=== PATIENT | female | born 1940 | race Caucasian/White ===

== ENCOUNTER 2018-04-21 16:20 | Outpatient (CLI) | payer MEDICARE, MEDICAID | END 2018-04-21 23:59 | disposition home or self-care (01) | LOC: RAD 16:20 | PROVIDERS: ATTEND Family Medicine | DX: M79.89 Other specified soft tissue disorders (principal); M25.561 Pain in right knee | CPT/HCPCS: 73564-TC ==

== ENCOUNTER 2019-01-19 11:58 | Outpatient (CLI) | payer MEDICARE, MEDICAID | END 2019-01-19 23:59 | disposition home or self-care (01) | LOC: RAD 11:58 | PROVIDERS: ATTEND Family Medicine | DX: I70.0 Atherosclerosis of aorta (principal); M25.561 Pain in right knee; M25.562 Pain in left knee; M79.604 Pain in right leg; M79.605 Pain in left leg; Z98.890 Other specified postprocedural states; Z98.82 Breast implant status | CPT/HCPCS: 71100-TC; 73562; 73590-TC ==

== ENCOUNTER 2019-01-26 15:10 | Outpatient (CLI) | payer MEDICARE, MEDICAID | END 2019-01-26 23:59 | disposition home or self-care (01) | LOC: WOU 15:10 | PROVIDERS: ATTEND Specialist | DX: S81.011A Laceration without foreign body, right knee, initial encounter (principal); S81.811A Laceration without foreign body, right lower leg, initial encounter; W18.30XA Fall on same level, unspecified, initial encounter; Y92.89 Other specified places as the place of occurrence of the external cause; Z87.891 Personal history of nicotine dependence; I73.9 Peripheral vascular disease, unspecified; Z98.62 Peripheral vascular angioplasty status; Z79.02 Long term (current) use of antithrombotics/antiplatelets; E78.5 Hyperlipidemia, unspecified | CPT/HCPCS: 87070; 87075; 87077; 87186; A6209; A6402; G0463 ==

== ENCOUNTER 2019-01-27 10:00 | Outpatient (CLI) | payer MEDICARE, MEDICAID | END 2019-01-27 23:59 | disposition home or self-care (01) | LOC: WOU 10:00 | PROVIDERS: ATTEND Specialist | DX: S81.811D Laceration without foreign body, right lower leg, subsequent encounter (principal); X58.XXXD Exposure to other specified factors, subsequent encounter; I77.1 Stricture of artery; Z98.890 Other specified postprocedural states ==

== ENCOUNTER 2019-02-02 11:20 | Outpatient (CLI) | payer MEDICARE, MEDICAID | END 2019-02-02 23:59 | disposition home or self-care (01) | LOC: WOU 11:20 | PROVIDERS: ATTEND Specialist | DX: S81.011D Laceration without foreign body, right knee, subsequent encounter (principal); S81.811A Laceration without foreign body, right lower leg, initial encounter; X58.XXXA Exposure to other specified factors, initial encounter; Y92.89 Other specified places as the place of occurrence of the external cause; X58.XXXD Exposure to other specified factors, subsequent encounter; Z87.891 Personal history of nicotine dependence; Z88.0 Allergy status to penicillin; Z79.02 Long term (current) use of antithrombotics/antiplatelets; E78.5 Hyperlipidemia, unspecified; I70.209 Unspecified atherosclerosis of native arteries of extremities, unspecified extremity; Z98.62 Peripheral vascular angioplasty status | CPT/HCPCS: 17250; A6209; A6402 ==

== ENCOUNTER 2019-05-04 18:52 | Inpatient (IN) | payer MEDICARE, MEDICAID ==
[~2019-05-04] VITALS: Ht 162.6 cm; Wt 48.8 kg
--- NOTE | 2019-05-04 19:15 | NUR ---
PT BIBSELF C/O ABD PAIN, WAS REFERRED FROM DR. WHELAN FOR SCHEDULED CHOLECYSTECTOMY TOMORROW MORNING. PT AXO4. RESPIRATIONS EVEN AND UNLABORED. PT PUT ON THE NANOFABRICATION SPECIALIST AND PULSE OX. PENDING EVAL FROM . FAMILY AT BEDSIDE.
--- NOTE | 2019-05-04 19:25 | NUR ---
LABS DRAWN FROM 20G LOCATED WITHIN [facility], SENT TO LAB.
[2019-05-04] MEDS ORDERED: IV NS 0.9% 1,000 ML BAG IV ONE (19:30)
[2019-05-04] MEDS ORDERED: ONDANSETRON HCL/PF 4 MG/2 ML VIAL IVP ONE (19:30)
[2019-05-04] MEDS ORDERED: MORPHINE SULFATE INJ 2 MG/ML DISP.SYRIN IV ONE (19:30)
[2019-05-04] MEDS ORDERED: ONDANSETRON HCL/PF 4 MG/2 ML VIAL ONE (19:35)
[2019-05-04] MEDS ORDERED: MORPHINE SULFATE INJ 4 MG/ML DISP.SYRIN ONE (19:35)
--- NOTE | 2019-05-04 19:40 | NUR ---
Chapo zee in [facility] - 05/04/19 at 2017 by KIRSTEN DEB AT BEDSIDE
[2019-05-04 19:43] LABS: BASOPHILS % (AUTO) 0.6 % (0.0-2.0); EOSINOPHILS % (AUTO) 5.5 % (0.0-6.0); HEMATOCRIT 37 % (33-45); HEMOGLOBIN 12.7 g/dL (11.5-14.8); LYMPHOCYTES # (AUTO) 2.1 /CMM (0.8-4.8); LYMPHOCYTES % (AUTO) 28.4 % (20.0-44.0); MEAN CORPUSCULAR HGB CONC 34 g/dl (31.0-36.0); MEAN CORPUSCULAR VOLUME 94 fL (82-100); MONOCYTES # (AUTO) 0.4 /CMM (0.1-1.30); MONOCYTES % (AUTO) 4.8 % (2.0-12.0); NEUTROPHILS # (AUTO) 4.4 /CMM (1.8-8.9); NEUTROPHILS % (AUTO) 60.7 % (43.0-81.0); PLATELET COUNT (AUTO) 252 /CMM (150-450); RED BLOOD CELL COUNT(AUTO) 3.97 MIL/uL (4.0-5.2); WHITE BLOOD COUNT (AUTO) 7.3 K/uL (4.3-11.0)
[2019-05-04 19:52] LABS: CALCIUM, SERUM 9.3 mg/dL (8.5-10.1); CARBON DIOXIDE 28 mmol/L (21-32); CHLORIDE 104 mmol/L (98-107); CREATININE 0.9 mg/dL (0.6-1.3); GLUCOSE 95 mg/dL (74-106); POTASSIUM 4.4 mmol/L (3.5-5.1); SODIUM SERUM 139 mmol/L (136-145); UREA NITROGEN, BLOOD 18 mg/dL (7-18)
--- NOTE | 2019-05-04 19:55 | NUR ---
US AT BEDSIDE.
[2019-05-04 20:06] LABS: ALANINE AMINOTRANSFERASE 20 U/L (12-78); ALBUMIN 4.1 g/dL (3.4-5.0); ALKALINE PHOSPHATASE 110 U/L (46-116); ASPARTATE AMINOTRANSFERASE 15 U/L (15-37); BILIRUBIN,DIRECT 0.2 mg/dL (0.0-0.2); BILIRUBIN,TOTAL 1.9 mg/dL (0.2-1.0); LIPASE 89 U/L (73-393); TOTAL PROTEIN, SERUM 7.2 g/dL (6.4-8.2)
--- NOTE | 2019-05-04 20:17 | NUR ---
XRAY AT BEDSIDE.
--- NOTE | 2019-05-04 20:31 | NUR ---
PT RESTING IN BED, NAD NOTED. WILL CONTINUE TO MONITOR. FAMILY AT BEDSIDE.
--- NOTE | 2019-05-04 20:32 | NUR ---
CALLED [facility], DR RAHMAN WAS PAGED
--- NOTE | 2019-05-04 20:54 | NUR ---
Chapo zee in [facility] - 05/04/19 at 2054 by FER REPORT GIVEN TO WILMA MONAHAN FOR ROMINA.
--- NOTE | 2019-05-04 20:58 | NUR ---
REPORT GIVEN TO WILMA MONAHAN FOR ROMINA.
[2019-05-04 21:35] VITALS: BP 176/70
--- NOTE | 2019-05-04 21:35 | NUR ---
RN NOTES Received patient from ER via [facility], accompanied by 2 ER staff and patient's son Wero Mcfarland ([phone]). Admitted to [facility] 309-2 due to Abdominal Pain under the service of Dr. Parviz Dacosta. Assisted patient to bed comfortably. Patient noted with unsteady gait. Admission routine done. Belongings inventory completed by the assigned CONTINUOUS IMPROVEMENT CONSULTANT. Patient refused skin assessment at this time, claiming she has not skin issues identified. With patent peripheral IV line LAC G#20, SL Admission orders noted and carried out. Kept patient clean, dry and comfortable. Call light within easy reach. Answered inquiries of patient and family with satisfaction. Will continue to monitor accordingly.
[2019-05-04] MEDS ORDERED: HYDR-4354 PO (22:17)
[2019-05-04] MEDS ORDERED: ROSU5TAB13 PO (22:17)
[2019-05-04] MEDS ORDERED: NORT10CA PO (22:17)
[2019-05-04] MEDS ORDERED: LOPE2CAP40 PO (22:17)
[2019-05-04] MEDS ORDERED: CLOP75TA15 PO (22:17)
[2019-05-04] MEDS ORDERED: CELE200C PO (22:17)
[2019-05-04] MEDS ORDERED: ONDANSETRON HCL/PF 4 MG/2 ML VIAL IVP PRN (23:00)
[2019-05-04] MEDS ORDERED: NITROGLYCERIN PACKET 1 GM PACKET TOP PRN (23:00)
[2019-05-04] MEDS ORDERED: IV D5/0.45 NACL 1,000 ML IV PRN (23:00)
[2019-05-04] MEDS ORDERED: ACETAMINOPHEN 650 MG/SUPP.RECT RC PRN (23:00)
[2019-05-04] MEDS ORDERED: MORPHINE SULFATE INJ 2 MG/ML DISP.SYRIN IV PRN (23:00)
[2019-05-05] MEDS ORDERED: MORPHINE SULFATE INJ 4 MG/ML DISP.SYRIN ONE (00:44)
--- NOTE | 2019-05-05 00:45 | NUR ---
RN NOTES @ 0030 Seen and examined by the admitting MD Dr. Jj. With new order to increased Morphine into 4mg with the same route and frequency, noted and carried out. Kept patient warm. Administered Morphine as order for patient's anterior lower abdominal pain 06/04. Will continue to monitor accordingly.
[2019-05-05] MEDS ORDERED: MORPHINE SULFATE INJ 4 MG/ML DISP.SYRIN IV PRN (01:00)
--- NOTE | 2019-05-05 01:30 | NUR ---
RN NOTES Revaluated the patient for pain, noted asleep comfortably. Will continue to monitor accordingly.
[2019-05-05] MEDS ORDERED: MORPHINE SULFATE INJ 2 MG/ML DISP.SYRIN IV PRN (03:00)
[2019-05-05 06:31] LABS: BASOPHILS # (AUTO) 0.1 /CMM (0.0-0.2); BASOPHILS % (AUTO) 0.7 % (0.0-2.0); EOSINOPHILS % (AUTO) 5.8 % (0.0-6.0); HEMATOCRIT 34 % (33-45); HEMOGLOBIN 11.6 g/dL (11.5-14.8); LYMPHOCYTES # (AUTO) 3.2 /CMM (0.8-4.8); LYMPHOCYTES % (AUTO) 35.1 % (20.0-44.0); MEAN CORPUSCULAR HGB CONC 34 g/dl (31.0-36.0); MEAN CORPUSCULAR VOLUME 95 fL (82-100); MONOCYTES # (AUTO) 0.9 /CMM (0.1-1.30); MONOCYTES % (AUTO) 10.2 % (2.0-12.0); NEUTROPHILS # (AUTO) 4.3 /CMM (1.8-8.9); NEUTROPHILS % (AUTO) 48.2 % (43.0-81.0); PLATELET COUNT (AUTO) 179 /CMM (150-450)
[2019-05-05 06:54] LABS: ALANINE AMINOTRANSFERASE 14 U/L (12-78); ALBUMIN 2.9 g/dL (3.4-5.0); ALKALINE PHOSPHATASE 83 U/L (46-116); ASPARTATE AMINOTRANSFERASE 14 U/L (15-37); BILIRUBIN,TOTAL 1.5 mg/dL (0.2-1.0); CALCIUM, SERUM 8.3 mg/dL (8.5-10.1); CARBON DIOXIDE 25 mmol/L (21-32); CHLORIDE 108 mmol/L (98-107); CREATININE 0.9 mg/dL (0.6-1.3); GLUCOSE 82 mg/dL (74-106); POTASSIUM 4.4 mmol/L (3.5-5.1); SODIUM SERUM 139 mmol/L (136-145); TOTAL PROTEIN, SERUM 5.4 g/dL (6.4-8.2); UREA NITROGEN, BLOOD 15 mg/dL (7-18)
[2019-05-05 06:55] LABS: CHOLESTEROL 85 mg/dL (<200); HDL CHOLESTEROL 28 mg/dL (40-60); LDL 36 mg/dL (0-99); THYROID STIMULATING HORMONE 9.233 uIU/mL (0.358-3.74); TRIGLYCERIDES 202 mg/dL (30-150)
--- NOTE | 2019-05-05 07:21 | NUR ---
RN NOTES Patient awake, on William's position on bed. Claimed with minimal pain, tolerating well. awaiting for GI consult at this time. All nursing needs attended. Kept clean, dry and comfortable. On fall precautions. Call light within easy reach. Endorsed to the next shift.
--- NOTE | 2019-05-05 07:55 | NUR ---
ms rn received on bed, awake,alert,oriented x4,not in any form of distress, respirations even and unlabored, denies abd pain at this time, will monitor patient.
[2019-05-05 08:00] VITALS: BP 131/66
[2019-05-05] MEDS ORDERED: FAMOTIDINE/PF INJ 20 MG/2 ML VIAL IV SCH (09:00)
--- NOTE | 2019-05-05 09:00 | NUR ---
ms rn was seen by dr. prater for consult, w/ no order at this time, but feed patient and ok to go home if cleared by primary.
[2019-05-05 12:20] LABS: IRON, SERUM 84 ug/dl (50-175); TOTAL IRON BINDING CAPACITY 277 ug/dl (250-450)
[2019-05-05 12:55] LABS: FERRITIN 87 ng/mL (8-388)
--- NOTE | 2019-05-05 13:00 | NUR ---
ms rn waiting for doctor anai.
[2019-05-05] MEDS ORDERED: LEVO100T9 PO (15:27)
--- NOTE | 2019-05-05 15:30 | NUR ---
ms rn was seen by dr. anai boone/ orders made and carried out.
[2019-05-05 16:00] VITALS: BP 179/78
--- NOTE | 2019-05-05 16:20 | NUR ---
ms computer patternmaker instructions given, pt went home w/ prescription, accompanied by son.
[2019-05-05] MEDS ORDERED: CLOPIDOGREL BISULFATE 75 MG TABLET PO SCH (22:00)
[2019-05-05] MEDS ORDERED: NORTRIPTYLINE HCL 10 MG CAPSULE PO SCH (22:00)
[2019-05-05] MEDS ORDERED: CELECOXIB 100 MG CAPSULE PO SCH (22:00)
[2019-05-06] MEDS ORDERED: ATORVASTATIN 10 MG TABLET PO SCH (09:00)
== END 2019-05-05 16:45 | disposition home or self-care (01) | DRG 445 ==
LOC: ER 19:00 → MED 20:45
PROVIDERS: ADMIT Internal Medicine; ATTEND Internal Medicine
DX: K80.80 Other cholelithiasis without obstruction (principal); E46 Unspecified protein-calorie malnutrition; R10.9 Unspecified abdominal pain; G62.9 Polyneuropathy, unspecified; Z86.011 Personal history of benign neoplasm of the brain; E03.9 Hypothyroidism, unspecified; I73.9 Peripheral vascular disease, unspecified; G89.29 Other chronic pain; D64.9 Anemia, unspecified; Z88.0 Allergy status to penicillin; Z79.891 Long term (current) use of opiate analgesic
CPT/HCPCS: 36415; 71045-TC; 74018; 76705-TC; 80048-TC; 80053-TC; 80061-TC; 80076-TC; 82378; 82728-TC; 83540-TC; 83690-TC; 83735-TC; 84100-TC; 84443-TC; 85025-TC; 85730-TC; 87081-TC; G0378; J2270; J2405; J3490; J7030